=== PATIENT | male | born 1970 | race Caucasian/White ===

== ENCOUNTER 2021-12-28 07:16 | Day surgery (SDC) | payer MEDICARE, MEDICAID ==
[2021-12-22 16:56] LABS: CLARITY,URINE CLEAR (Clear); COLOR,URINE YELLOW (Yellow); GLUCOSE, URINE >=1000 mg/dl (Neg); KETONES,URINE NEGATIVE (Neg); LEUKOCYTE ESTERASE ,URINE NEGATIVE (Neg); NITRITES, URINE NEGATIVE (Neg); OCCULT BLOOD,URINE NEGATIVE (Neg); PH,URINE 8.5 (4.8-8.0); PROTEIN,URINE 100 mg/dl (Neg); UROBILINOGEN,URINE 0.2 E.U/dL (0.2-1.0)
[2021-12-22 16:59] LABS: BASOPHILS % (AUTO) 0.7 % (0-1); EOSINOPHILS # (AUTO) 0.2 X10'3 (0-0.9); EOSINOPHILS % (AUTO) 5.1 % (0-6); LYMPHOCYTES # (AUTO) 0.8 X10'3 (1.1-4.8); LYMPHOCYTES % (AUTO) 21.4 % (21-51); MEAN CORPUSCULAR HEMOGLOBIN 27.4 PG (27.0-31.0); MEAN CORPUSCULAR VOLUME 83.3 FL (78-98); MEAN PLATELET VOLUME 6.9 FL (7.4-10.4); MONOCYTES # (AUTO) 0.5 X10'3 (0-0.9); MONOCYTES % (AUTO) 12.8 % (2-12); NEUTROPHILS # (AUTO) 2.3 X10'3 (1.8-7.7); PRE OP HEMATOCRIT 28.2 % (42.0-52.0); PRE OP PLATELET COUNT 403 X10'3 (140-440); RED BLOOD COUNT 3.38 X10'6 (4.70-6.10); RED CELL DISTRIBUTION WIDTH 18.8 % (11.5-14.5)
[2021-12-22 17:02] LABS: PRE OP HEMOGLOBIN 9.3 g/dL (14.0-17.9)
[2021-12-22 17:02] LABS: UA COLLECTION TYPE CLN CATCH MIDSTREAM
[2021-12-22 17:05] LABS: SQUAMOUS EPITHELIAL CELL,UR FEW /LPF (FEW)
[2021-12-22 17:07] LABS: RBC,URINE NONE SEEN /HPF (0-2)
[2021-12-22 17:08] LABS: WBC,URINE 0-4 /HPF (0-4)
[2021-12-22 17:10] LABS: BACTERIA,URINE NONE SEEN /HPF (Neg)
[2021-12-22 17:12] LABS: CHLORIDE 101 MMOL/L (99-107); PRE OP POTASSIUM 3.8 MMOL/L (3.4-5.1); PRE OP SODIUM 142 MMOL/L (135-145); TOTAL CARBON DIOXIDE 33.8 MMOL/L (24-32)
[2021-12-22 17:13] LABS: ALBUMIN 2.8 G/DL (3.4-5.0); ALBUMIN/GLOBULIN RATIO 0.9 (1.1-1.5); ALKALINE PHOSPHATASE 79 IU/L (46-116); BLOOD UREA NITROGEN 17 MG/DL (7-18); CREATININE 4.23 MG/DL (0.60-1.10); PRE OP ALT 24 U/L (30-65); PRE OP ANION GAP 7 (8-16); PRE OP AST 20 U/L (10-37); PRE OP BILIRUB, TOTAL 0.3 MG/DL (0.0-1.0); eGFR 15 ML/MIN
[2021-12-22 17:15] LABS: PRE OP GLUCOSE 220 MG/DL (70-104)
[2021-12-22 18:38] LABS: ANISOCYTOSIS 2+; PLATELET ESTIMATE NORMAL
[2021-12-22 18:39] LABS: ELLIPTOCYTES FEW; POLYCHROMASIA 1+
[2021-12-22 18:40] LABS: MICROCYTOSIS FEW; POIKILOCYTOSIS FEW
[~2021-12-28] VITALS: Ht 177.8 cm; Wt 65.8 kg
[2021-12-28] VITALS (19 sets, daily range): BP systolic 112–165; BP diastolic 71–92
[~2021-12-28 07:16] MED LIST: ATOR10TA87 PO; DOCU250C21 PO; DOCUMENT DATE & TIME OF BETA-BLOCKER PO ONE; FURO-150 PO; HYDR100T27 PO; INSU100V11 SQ; LABE200T8 PO; LOSA50TA64 PO; SEVE800T7 PO; ceFAZolin inj. 2,000 MG in dextrose 5%-water 100 ML IV ONE; famotidine 20mg tablet PO ONE; ringers solution, lacted 1,000 ML IV SCH
[2021-12-28] MEDS ORDERED: normal saline 500ml IV soln 500 ML IV ONE (07:35)
[2021-12-28] MEDS ORDERED: heparin sodium, porcine/PF 100unit/ml 5ML syringe ONE (07:48)
[2021-12-28] MEDS ORDERED: BUPIVAcaine/PF 2.5mg/ml (0.25%) 10ml vial ONE (07:49)
[2021-12-28] MEDS ORDERED: mupirocin 2% ointment 22GM ONE (07:49)
[2021-12-28] MEDS ORDERED: etomidate 2mg/ml inj. ONE ×2 (09:40→10:28)
[2021-12-28] MEDS ORDERED: dexamethasone sod phosphate 10mg/ml inj ONE (09:40)
[2021-12-28] MEDS ORDERED: neostigmine methylsulfate 1 MG/ML 10ml vial ONE (09:40)
[2021-12-28] MEDS ORDERED: sevoflurane 250ml liquid IH ONE (09:40)
[2021-12-28] MEDS ORDERED: fentaNYL/PF 50MCG/1 ML 2ML syringe ONE (09:41)
[2021-12-28] MEDS ORDERED: midazolam 1 mg/ML 2ml injection ONE (09:41)
[2021-12-28] MEDS ORDERED: hydrALAZINE 20mg/ml inj. IV PRN (09:50)
[2021-12-28] MEDS ORDERED: fentaNYL/PF 50MCG/1 ML 2ML syringe IV PRN ×2 (09:50)
[2021-12-28] MEDS ORDERED: ondansetron/PF 4mg/2ml inj IV PRN (09:50)
[2021-12-28] MEDS ORDERED: morphine 2 MG/ML inj. syringe IV PRN (09:50)
[2021-12-28] MEDS ORDERED: labetalol 20mg/4ml (5mg/ml) syringe IV PRN (09:50)
[2021-12-28] MEDS ORDERED: morphine 4 MG/ML inj SYRINge IV PRN (09:50)
[2021-12-28] MEDS ORDERED: ringers solution, lacted 1,000 ML IV SCH (09:50)
[2021-12-28] MEDS ORDERED: glycopyrrolate 0.2mg/ml inj ONE (10:27)
[2021-12-28] MEDS ORDERED: ondansetron/PF 4mg/2ml inj ONE (10:27)
[2021-12-28] MEDS ORDERED: rocuronium 10mg/ml inj IV ONE (10:28)
[2021-12-28] MEDS ORDERED: labetalol 20mg/4ml (5mg/ml) syringe IV ONE (10:29)
--- NOTE | 2021-12-28 10:52 | NUR ---
Received from OR via [facility] , accompanied by Anesthesiologist dr oliva and report given by Anesthesiolgist. PT PRESENTS WITH PIV 20G LEFT HAND, DRESSING ON RIGHT UPPER CHEST CDI, PT BG [address] MONITOR. VSS.
[2021-12-28] MEDS ORDERED: HYDROcodone/acetaminophen 5mg/325mg tablet PO ONE (11:45)
--- NOTE | 2021-12-28 13:42 | NUR ---
PT HAS MET ALL DC CRITERIA, VSS, IV DC'D WITH CATHETER INTACT. PT GIVEN WATER AND SALTINES AND TOLERATED WELL. PT WAS SENT HOME WITH RX LEFT IN PHARMACY, GLUCOSE MONITOR, CELL PHONE, ONE PT BLACK BAG AND ONE PT BELONGING BAG.I HAVE REVIEWED D/C INSTRUCTIONS WITH PATIENT AND THEY HAVE VERBALIZED UNDERSTANDING OF INSTRUCTIONS. PATIENT D/C HOME WITH ALL BELONGINGS AND [facility] GAVE TRANSPORT TO PT. Addendum: 12/28/21 at 1422 by Shraddha Thurman RN, RN Amended: Links added.
== END 2021-12-28 13:42 | disposition home or self-care (01) ==
LOC: PAS 07:16
PROVIDERS: ATTEND Surgery
DX: N17.9 Acute kidney failure, unspecified (principal); E11.22 Type 2 diabetes mellitus with diabetic chronic kidney disease; I12.9 Hypertensive chronic kidney disease with stage 1 through stage 4 chronic kidney disease, or unspecified chronic kidney disease; N18.9 Chronic kidney disease, unspecified; Z79.899 Other long term (current) drug therapy; Z98.890 Other specified postprocedural states
CPT/HCPCS: 36415; 49324; 80047; 80053; 81001; 85025; C1750; J0690; J1100; J2250; J2405; J2710; J3010; J3490; J7040; J7060; Z7506; Z7508; Z7512; 85008; A4215; A4618; A6402; A7000; J1642; J7120

== ENCOUNTER 2024-06-10 14:31 | Outpatient (CLI) | payer MEDICARE, MEDICAID ==
[~2024-06-10 14:31] MED LIST changes: +CALC0.5C2 PO; +CINA30TA2 PO; -DOCUMENT DATE & TIME OF BETA-BLOCKER PO ONE; +GENT30OI2 TOP; -HYDR100T27 PO; +INSU100C10 SQ; -INSU100V11 SQ; +INSU100V56 SQ; +LABE100T8 PO; -LABE200T8 PO; -LOSA50TA64 PO; +MAGN500C4 PO; +TRIA15CR62 TOP; -ceFAZolin inj. 2,000 MG in dextrose 5%-water 100 ML IV ONE; -famotidine 20mg tablet PO ONE; -ringers solution, lacted 1,000 ML IV SCH
== END 2024-06-10 23:59 | disposition home or self-care (01) ==
LOC: CARD DIAG 14:31
PROVIDERS: ATTEND Internal Medicine Critical Care Medicine
DX: I08.8 Other rheumatic multiple valve diseases (principal); R06.00 Dyspnea, unspecified; R18.8 Other ascites
CPT/HCPCS: 93306